=== PATIENT | female | born 1980 | race Caucasian/White ===

== ENCOUNTER 2017-11-07 05:15 | Day surgery (SDC) | payer BC ==
[2017-10-23 13:13] VITALS: BMI 30.4
[2017-11-07] MEDS ORDERED: ACETAMINOPHEN 1000 MG/100 ML VIAL (NON FORMULARY) IVPB ONE (12:20)
[2017-11-07] MEDS ORDERED: VASOPRESSIN 20 UNITS/ML VIAL IV ONE (12:25)
[2017-11-07] MEDS ORDERED: IBUPROFEN 800 MG/8 ML IJ IVPB SCH (12:30)
[2017-11-07] MEDS ORDERED: DEXTROSE 5%-0.45% SALINE 1,000 ML IV SCH (12:30)
[2017-11-07] MEDS ORDERED: MIDAZOLAM HCL 2 MG/2 ML SINGLE DOSE VIAL ONE (12:36)
[2017-11-07] MEDS ORDERED: SUCCINYLCHOLINE CHLORIDE 200 MG/10 ML VIAL ONE (12:51)
[2017-11-07] MEDS ORDERED: ROCURONIUM BROMIDE 50 MG/5 ML VIAL ONE (12:51)
[2017-11-07] MEDS ORDERED: PROPOFOL 20 ML ONE (12:51)
[2017-11-07] MEDS ORDERED: ceFAZolin SODIUM 1 GM VIAL IVPB ONE (13:01)
[2017-11-07] MEDS ORDERED: LIDOCAINE HCL/PF 2% SDV 5ML VIAL ONE (13:27)
[2017-11-07] MEDS ORDERED: KETOROLAC TROMETHAMINE 30 MG/1 ML VIAL ONE (13:27)
[2017-11-07] MEDS ORDERED: ceFAZolin SODIUM 1 GM VIAL ONE (13:27)
[2017-11-07] MEDS ORDERED: DEXAMETHASONE SOD PHOSPHATE 4 MG/1 ML VIAL ONE (13:27)
[2017-11-07] MEDS ORDERED: PROMETHAZINE HCL 25 MG/1 ML VIAL IVPB PRN (13:50)
[2017-11-07] MEDS ORDERED: ONDANSETRON 4 MG/2 ML VIAL IVPUSH PRN (13:50)
[2017-11-07] MEDS ORDERED: oxyCODONE HCL 5 MG TABLET PO PRN (13:50)
[2017-11-07] MEDS ORDERED: LACTATED RINGERS SOLUTION 1,000 ML IV SCH (14:00)
[2017-11-07] MEDS ORDERED: ACETAMINOPHEN INJECTION 100 ML IVPB ONE (14:06)
[2017-11-07 15:22] VITALS: BP 118/75; PULSE 79
[2017-11-07 15:45] VITALS: TEMP 99.1
--- NOTE | 2017-12-04 15:07 | OP ---
DATE OF OPERATION: 11/07/2017 PREOPERATIVE DIAGNOSES: Stress urinary incontinence, hypermobile urethra. POSTOPERATIVE DIAGNOSES: Stress urinary incontinence, hypermobile urethra. PROCEDURE: Cystoscopy and suburethral sling placement. ANESTHESIA: General. SURGEON: Ke Mcmahan MD ESTIMATED BLOOD LOSS: Minimal. PREOPERATIVE INDICATIONS: The patient is a 37-year-old female who has stress urinary incontinence by history, physical, and by testing. She comes to the OR for sling placement. DESCRIPTION OF PROCEDURE: The patient was brought to the OR, placed on the table in supine position, given general anesthesia and IV antibiotics. She was then placed in modified lithotomy position. The groin was prepped and draped sterilely. Timeout was performed. Ayala catheter was placed. The mid portion of the urethra was identified and marked with a marking pen. Pitressin was injected underneath the mucosa. An incision was made over the mid portion of the urethra. The vaginal mucosa was then sharply dissected off the periurethral tissues in a lateral fashion. Bladder was emptied. Using a trocar from the mini sling, the Altis on the right side was passed through the incision under fingertip control towards the obturator canal and the trocar was rotated. The sling implanted properly. This was also done on the left side. No evidence of button-holing in the vaginal mucosa was seen. Cystoscopy revealed no evidence of bladder perforation. The scope was removed. The sling was tightened so it laid flat on the mid portion of the urethra with no tension. The excess suture was excised. Then, the vaginal mucosa was closed with 2-0 Vicryl suture. The patient was woken up. Sophia [id number]
== END 2017-11-07 16:05 | disposition home or self-care (01) ==
LOC: JASU-SURG 05:15
PROVIDERS: ATTEND Urology
PROC: 0TSD0ZZ Reposition Urethra, Open Approach (ICD-10-PCS; principal; 2017-11-07 10:00)
DX: N39.3 Stress incontinence (female) (male) (principal); N36.41 Hypermobility of urethra
CPT/HCPCS: 84703; 94760; J0131